=== PATIENT | female | born 1955 | race Caucasian/White ===

== ENCOUNTER → 2016-06-04 | Outpatient (CLI) | payer OTHER ==
[~2016-06-04] VITALS: Ht 170.2 cm; Wt 68.0 kg
[~2016-06-04] MED LIST: DENOSUMAB 60 MG/1 ML (PROLIA) SQ ONE
--- OUTSIDE RECORDS SUMMARY | 2016-06-04 13:17 | XMS REPORT | Continuity of Care Document ---
Author Author [facility] Organization [facility] Address Unknown Phone Unavailable Allergies Active Description Code Type Severity Reaction Onset Reported/Identified Relationship to Patient Clinical Status Yes No Known Drug Allergies [id number] Drug Allergy Unknown N/ A 09/19/2014 Medications Problems Date Dx Coded Attending Type Code Diagnosis Diagnosed By 08/29/2014 Ot V72.84 08/29/2014 Ot 733.00 08/29/2014 ROSAMARIA COYNE Ot V76.12 08/29/2014 YOAV CHILDERS DO S Ot 733.00 09/22/2014 YOAV CHILDERS DO S Ot 733.00 12/21/2014 [place] CHILDERS DOLINE S Ot 733.00 05/22/2015 WENDY CHILDERS DOQUELINE S Ot M81.0 06/18/2015 WENDY CHILDERS DOQUELINE S Ot M81.0 10/31/2015 [place] CHILDERS DOLINE S Ot M81.0 AGE-RELATED OSTEOPOROSIS W/O CURRENT PAT 11/01/2015 WENDY CHILDERS DOQUELINE S Ot M81.0 AGE-RELATED OSTEOPOROSIS W/O CURRENT PAT 11/01/2015 [place] CHILDERS DOLINE S Ot Z79.899 OTHER AIR TRAFFIC COORDINATOR (CURRENT) DRUG THERAPY 11/04/2015 WENDY CHILDERS DOQUELINE S Ot M81.0 AGE-RELATED OSTEOPOROSIS W/O CURRENT PAT 11/04/2015 PRINCENDALCON PATIÑO, YOAV S Ot Z79.899 OTHER FDC (CURRENT) DRUG THERAPY 11/20/2015 WENDY CHILDERS DOQUELINE S Ot M81.0 AGE-RELATED OSTEOPOROSIS W/O CURRENT PAT 11/20/2015 PRINCENDWENDY RONDON DOQUELINE S Ot Z79.899 OTHER FDC (CURRENT) DRUG THERAPY 11/22/2015 [place] CHILDERS DOLINE S Ot Z12.31 ENCNTR SCREEN MAMMOGRAM FOR MALIGNANT NE 12/06/2015 [place] CHILDERS DOLINE S Ot M81.0 AGE-RELATED OSTEOPOROSIS W/O CURRENT PAT 12/11/2015 YOAV CHILDERS DO Ot Z12.31 ENCNTR SCREEN MAMMOGRAM FOR MALIGNANT NE 12/25/2015 [place] CHILDERS DOLINE S Ot M81.0 AGE-RELATED OSTEOPOROSIS W/O CURRENT PAT Procedures Results Encounters ACCT No. Visit Date/Time Discharge Status Pt. Type Provider Facility Loc./Unit Complaint [id number] 09/19/2014 13:32:00 2014 23:59:59 CLS Outpatient RYLEEER WENDY PATIÑOYOAV S [facility] [id number] 09/07/2014 13:00:00 2014 23:59:59 CLS Preadmit ALVARADO PATIÑO YOAV S [facility] [id number] 08/23/2014 08:48:00 2014 23:59:59 CLS Outpatient RYLEEER DO YOAV S [facility] RAD [id number] 10/05/2013 14:49:00 2013 23:59:59 CLS Outpatient VANYOVANNYDEVROSAMARIA BRANCH ASSISTANT [facility] RAD [id number] 12/03/2015 13:02:00 ACT Outpatient ALVARADO PATIÑO YOAV S [facility] OSTEOPOROSIS [id number] 11/21/2015 09:17:00 ACT Outpatient ALVARADO PATIÑO YOAV S [facility] RAD SCREENING [id number] 10/31/2015 08:29:00 ACT Outpatient RYLEEER DO YOAV S [facility] RAD [id number] 05/14/2015 13:14:00 ACT Outpatient RYLEEER DO YOAV S [facility] [id number] 09/19/2014 14:01:00 Document Registration [id number] 09/19/2014 14:01:00 Document Registration [id number] 09/19/2014 14:01:00 Document Registration [id number] 07/01/2012 09:24:00 Document Registration [id number] 05/19/2012 07:12:00 Document Registration
[2016-06-04 13:30] VITALS: BP 139/90
== END ==
LOC: SDC 13:14
PROVIDERS: ATTEND Family Medicine
DX: M81.0 Age-related osteoporosis without current pathological fracture (principal)
CPT/HCPCS: 96372

== ENCOUNTER → 2016-11-05 | Outpatient (CLI) | payer OTHER ==
--- NOTE | 2016-11-05 09:33 | Diagnostic Imaging Report ---
Examination: DEXA scan. Indication: osteopenia Technique: Bone mineral density estimated based on dual energy radiography over the lumbar spine and femoral necks, was performed. Findings: The lumbar spine T-score is -3.3. This is 9% increased density compared to measurement of 10/31/15. T score over the left femoral neck is -1.8 and on the right side is -1.5. This is 1.2% increased density measurement compared to 2016. Impression: Osteoporosis. Dictated by: Dictated on workstation # [id number]
== END ==
LOC: RAD 08:17
PROVIDERS: ATTEND Family Medicine
DX: M81.0 Age-related osteoporosis without current pathological fracture (principal)
CPT/HCPCS: 77080

== ENCOUNTER → 2017-01-11 | Outpatient (CLI) | payer OTHER ==
[~2017-01-11] VITALS: Ht 170.2 cm; Wt 65.8 kg
== END ==
LOC: PREOP 05:58
PROVIDERS: ATTEND Surgery
DX: Z01.818 Encounter for other preprocedural examination (principal); Z12.11 Encounter for screening for malignant neoplasm of colon

== ENCOUNTER 2017-01-15 10:31 | Day surgery (SDC) | payer OTHER ==
[~2017-01-15] VITALS: Ht 170.2 cm; Wt 65.8 kg
[2017-01-15] MEDS ORDERED: NS IV 500 ML 500 ML ONE (10:40)
[2017-01-15] MEDS ORDERED: LIDOCAINE JELLY 2% (XYLOCAINE) 5 ML TUBE MM PRN (10:45)
[2017-01-15 10:57] VITALS: BP 112/74
[2017-01-15] MEDS ORDERED: NS IV 500 ML 500 ML IV PRN (11:00)
[2017-01-15] MEDS ORDERED: LIDOCAINE JELLY 2% (XYLOCAINE) 5 ML TUBE ONE (11:38)
[2017-01-15] MEDS ORDERED: fentaNYL INJECTION 100 MCG/2 ML AMP ONE ×3 (11:38→11:39)
[2017-01-15] MEDS ORDERED: MIDAZOLAM 2 MG/2 ML (VERSED) VIAL ONE ×5 (11:39)
[2017-01-15] MEDS: fentaNYL INJECTION 100 MCG/2 ML AMP IVP PRN ×5 (11:45→12:12)
[2017-01-15] MEDS: MIDAZOLAM 2 MG/2 ML (VERSED) VIAL IVP PRN ×5 (11:50→12:10)
--- NOTE | 2017-01-15 12:31 | Conscious Sedation/ASA ---
Conscious Sedation Pre-Proced Time Reviewed: 11:30 ASA Class: 2 Airway Mallampati Classification: ([place] appropriate class) I. II. III, IV Lungs Heart ASA score ASA 1: a normal healthy patient ASA 2: a patient with a mild systemic disease (mid diabetes, controlled hypertension, obesity ASA 3: a patient with a severe systemic disease that limits activity (angina , COPD, prior Myocardial infarction) ASA 4: a patient with an incapacitating disease that is a constant threat to life (CHF, renal failure) ASA 5: a moribund patient not expected to survive 24 hrs. (ruptured aneurysm) ASA 6: a declared brain patient whose organs are being harvested. For emergent operations, add the letter E after the classification Grade 2 Sedation Plan: Analgesia, Amnesia, Plan communicated to team members, Discussed options with patient/fam, Discussed risks with patient/fam Note The patient is an appropriate candidate to undergo the planned procedure, sedation, and anesthesia. The patient immediately re-assessed prior to indication. JAMILA LUEVANO MD Jan 15, 2017 12:31 pm
--- NOTE | 2017-01-15 12:32 | Progress Note-Pre Operative ---
Pre-Operative Progress Note H&P Reviewed The H&P was reviewed, patient examined and no changes noted. Date Seen by Provider: Jan 15, 2017 Time Seen by Provider: 11:30 Date H&P Reviewed: Jan 15, 2017 Time H&P Reviewed: 11:30 Pre-Operative Diagnosis: screening colonoscopy JAMILA LUEVANO MD Jan 15, 2017 12:32 pm
--- NOTE | 2017-01-15 12:33 | Progress Note-Post Operative ---
Post-Operative Progess Note Surgeon (s)/Pie Cutter (s) Surgeon JAMILA LUEVANO MD Pie Cutter: none Pre-Operative Diagnosis screening colonoscopy Post-Operative Diagnosis normal colon and rectum Procedure & Operative Findings Date of Procedure 01/15/17 Procedure Performed/Findings Colonoscopy Anesthesia Type CS Estimated Blood Loss Estimated blood loss (mL): minimal Specimens/Packing Specimens Removed none JAMILA LUEVANO MD Jan 15, 2017 12:33 pm
--- NOTE | 2017-01-15 12:34 | Discharge Inst-Surgical ---
D/C Lap Instructions-BASSEM Follow Up 10 years Activity as tolerated High Fiber Diet 25g or more per day Avoid Alcohol, Caffeine, Spicy [place] and Acid foods. Drink 64 fluid oz or more of fluids per day. Symptoms to Report: Fever over 101 degree F, Nausea/Vomiting If any problems/questions: Contact your physician or go to Emergency Room JAMILA LUEVANO MD Jan 15, 2017 12:34 pm
[2017-01-15] MEDS ORDERED: ACETAMINOPHEN 325 MG TABLET/CAPLET (TYLENOL) PO PRN (12:45)
[2017-01-15] MEDS ORDERED: HYDROcodone/APAP 5 MG/325 MG (LORTAB) TAB PO PRN (12:45)
[2017-01-15] MEDS ORDERED: morphine INJ 10 MG/ML 1ML (SYR OR VIAL) IV PRN (12:45)
[2017-01-15] MEDS ORDERED: ONDANSETRON 4 MG/2 ML (SDV) Z0FRAN IV PRN (12:45)
[2017-01-15 13:00] VITALS: BP 112/74
[2017-01-15 13:03] VITALS: BP 120/81
[2017-01-15 13:28] VITALS: BP 121/79
--- NOTE | 2017-01-15 22:06 | OPERATIVE REPORT ---
DATE OF SERVICE: 01/15/2017 ATTENDING PRIMARY CARE PHYSICIAN: Dr. Licha Schmidt DO PREOPERATIVE DIAGNOSIS: Screening colonoscopy. POSTOPERATIVE DIAGNOSIS: Normal colon and rectum. PROCEDURE: Colonoscopy. SURGEON: Dr. Luevano. ANESTHESIA: Conscious sedation. ESTIMATED BLOOD LOSS: Minimal. FINDINGS: No significant hemorrhoids identified. The remainder of the rectum and colon were normal. There were no polyps or neoplasm identified. DISPOSITION: The patient tolerated the procedure well. The patient is a 61-year-old female who needs a screening colonoscopy. She has not had a colonoscopy up to this point. She reports that she is doing well and for the most part does not have any major issues with diarrhea or constipation, as well as no bright red blood per rectum or any dark, tarry stools. She also does not report any family history of colon cancer. The patient was brought to the endoscopy suite in left lateral decubitus position. After adequate IV pain and sedative medications and conscious sedation anesthesia, a digital rectal examination was performed. No significant hemorrhoids were identified. Normal sphincter tone was felt and there were no palpable masses. The endoscope was then intubated to the anus, rectum gently insufflated. The endoscope was then advanced through the valves of [place] in the rectum where no polyps or any neoplasm was identified. We then proceeded to the sigmoid colon where no diverticulosis was identified. The endoscope was then advanced through the remainder of the descending transverse and ascending colon to the cecum. These segments were normal. There were no polyps or any neoplasms identified throughout the colon or rectum nor any other lesions. The endoscope was then slowly withdrawn while taking a 2nd look and suctioning of residual air with no additional findings. The patient tolerated the procedure well. We will have her continue with medical management with a high fiber diet with at least 25-30 minutes of fiber per day as well as at least 64 fluid ounces of water daily to promote soft stools on a daily basis. She also does not need another colonoscopy for another 10 years, however, sooner if any problems arise. Job ID: [id number] DocumentID: [id number] Dictated Date: 01/15/2017 12:31:57 Corner Trimmer Operator Date: 01/15/2017 17:30:22 Dictated By: JAMILA LUEVANO MD [facility]
== END 2017-01-15 13:30 | disposition home or self-care (01) ==
LOC: ENDO 10:31
PROVIDERS: ATTEND Surgery
DX: Z12.11 Encounter for screening for malignant neoplasm of colon (principal); M81.0 Age-related osteoporosis without current pathological fracture; Z79.899 Other long term (current) drug therapy

== ENCOUNTER → 2017-07-19 | Outpatient (CLI) | payer BC, OTHER ==
[~2017-07-19] MED LIST changes: -DENOSUMAB 60 MG/1 ML (PROLIA) SQ ONE; +PROLIA IM ONE
[2017-07-19 14:01] VITALS: BP 115/77
== END ==
LOC: SDC 13:23
PROVIDERS: ATTEND Family Medicine
DX: M81.0 Age-related osteoporosis without current pathological fracture (principal)
CPT/HCPCS: 96365

== ENCOUNTER → 2017-09-02 | Outpatient (CLI) | payer BC ==
--- NOTE | 2017-09-02 13:13 | Diagnostic Imaging Report ---
EXAMINATION: Pelvic ultrasound. INDICATION: Pelvic pain. FINDINGS: There are no prior studies available for comparison. The uterus is not enlarged measuring 4.8 x 3.9 x 2.1 cm. The endometrial lining is not thickened measuring 2 mm. There do appear to be a few calcifications in the myometrium adjacent to the endometrium in the lower uterine segment. The largest of these measures roughly 1 cm. These may represent small calcified fibroids. Neither ovary is identified. There is no pelvic mass or free fluid collection noted. IMPRESSION: 1. The uterus is not enlarged. The calcifications in the lower uterine segment may be related to small calcified uterine fibroids. 2. There is no acute pelvic abnormality noted. 3. The ovaries were not visualized. Dictated by: Dictated on workstation # [id number]
== END ==
LOC: RAD 10:43
PROVIDERS: ATTEND Family Medicine
DX: N85.8 Other specified noninflammatory disorders of uterus (principal)
CPT/HCPCS: 76830; 76856

== ENCOUNTER → 2017-11-21 | Outpatient (CLI) | payer BC ==
--- NOTE | 2017-11-21 11:33 | Diagnostic Imaging Report ---
EXAM: FACIAL BONES, 3 VIEWS OR MORE INDICATION: PRESSURE AND PAIN ON RIGHT SIDE OF FACE COMPARISON: None. FINDINGS: No fracture or malalignment is identified. The visualized paranasal sinuses are clear. No suspicious osteoblastic or lytic lesions. IMPRESSION: No acute radiographic findings. Report was called to Dalton/ALISHA C/O Bernadine GARCIA by [email or web address] at 11:32 AM. Dictated by: Dictated on workstation # [id number]
== END ==
LOC: RAD 10:56
PROVIDERS: ATTEND Nurse Practitioner Family
DX: R51 Headache (principal)
CPT/HCPCS: 70150

== ENCOUNTER → 2018-01-21 | Outpatient (CLI) | payer BC ==
[2018-01-21 13:35] VITALS: BP 124/76
== END ==
LOC: SDC 13:24
PROVIDERS: ATTEND Family Medicine
DX: M81.0 Age-related osteoporosis without current pathological fracture (principal)
CPT/HCPCS: 96372

== ENCOUNTER 2018-08-03 13:08 | Outpatient (CLI) | payer BC ==
[~2018-08-03] VITALS: Ht 170.2 cm; Wt 66.7 kg
[2018-08-03] MEDS ORDERED: DENOSUMAB 60 MG/1 ML (PROLIA) SQ ONE ×2 (13:30→13:45)
[2018-08-03 13:39] VITALS: BP 137/87
== END 2018-08-03 13:40 | disposition home or self-care (01) ==
LOC: SDC 13:08
PROVIDERS: ATTEND Family Medicine
DX: M81.0 Age-related osteoporosis without current pathological fracture (principal)
CPT/HCPCS: 96372

== ENCOUNTER 2019-02-01 12:59 | Outpatient (CLI) | payer BC ==
[~2019-02-01] VITALS: Ht 170.2 cm; Wt 66.0 kg
[2019-02-01 13:05] VITALS: BP 145/84
[2019-02-01] MEDS ORDERED: DENOSUMAB 60 MG/1 ML (PROLIA) SQ ONE (13:15)
== END 2019-02-01 13:18 | disposition home or self-care (01) ==
LOC: SDC 12:59
PROVIDERS: ATTEND Family Medicine
DX: M81.0 Age-related osteoporosis without current pathological fracture (principal)
CPT/HCPCS: 96372

== ENCOUNTER → 2019-03-14 | Outpatient (CLI) | payer BC ==
--- NOTE | 2019-03-14 14:24 | Diagnostic Imaging Report ---
INDICATION: Routine screening. Comparison is made with prior mammogram from 11/21/2015 and 10/05/2013. 2-D and 3-D bilateral screening mammography was performed with CAD. Bilateral breast implants are again noted. Implant contours appear to be stable. Breast parenchyma is heterogeneously dense, limiting the sensitivity of mammography. No mass or malignant appearing microcalcifications are seen. Axillae are unremarkable. IMPRESSION: BI-RADS Category 2 No mammographic features suspicious for malignancy are identified. ACR BI-RADS Category 2: Benign findings. Result letter will be mailed to the patient. Note: At least 10% of breast cancer is not imaged by mammography. Dictated by: Dictated on workstation # [id number]
--- NOTE | 2019-03-14 16:26 | Diagnostic Imaging Report ---
INDICATION: 63-year-old female, postmenopausal. Screening for osteoporosis. COMPARISON: November 05, 2016. FINDINGS: AP Spine L1-L4: [BMD (g/cm2): 0.726] [T-Score: -4.0] [Z-Score: -2.6] [BMD Previous: 0.804] [BMD % Change: -9.7] LT Hip Neck: [BMD (g/cm2): 0.713] [T-Score: -2.3] [Z-Score: -1.0] LT Hip Total: [BMD (g/cm2):0699] [T-Score:-2.5] [Z-Score: -1.5] [BMD Previous: 0.675] [BMD % Change: 3.6] RT Hip Neck: [BMD (g/cm2):0.705] [T-Score:-2.4] [Z-Score:-1.1] RT Hip Total: [BMD (g/cm2):0.712] [T-score:-2.3] [Z-Score:-1.3] [BMD Previous:0.713] [BMD % Change:-.1] *Indicates significant change from prior examination based on 95% confidence level. World Health Organization criteria for BMD interpretation classify patients as Normal (T-score at or above -1.0), Osteopenic (T-score between -1.0 and -2.5) or Osteoporotic (T-score at or below -2.5). LIMITATIONS AND MODIFICATION: None. IMPRESSION: 1. Osteoporosis. 2. See below National Osteoporosis Foundation guidelines on when to potentially initiate pharmacologic therapy. Based on the National Osteoporosis Foundation Guidelines, pharmacologic treatment should be initiated in any of the following, unless clinical conditions suggest otherwise: * Any patient with prior fragility fracture of the hip or vertebrae. A spine fracture indicates 5X risk for subsequent spine fracture and 2X risk for subsequent hip fracture. * Osteoporosis (T-score <-2.5). * Postmenopausal women and men age 50 and older with low bone mass/osteopenia (T-score between -1.0 and -2.5) by DXA and 10-year major osteoporotic fracture greater than 20% or a 10-year probability of hip fracture greater than 3%. These fracture risks are supplied above in the FRAX score, if applicable. * Clinician judgement and/or patient preferences may indicate treatment for people with 10-year fracture probabilities above or below these levels. Dictated by: Dictated on workstation # [id number]
== END ==
LOC: RAD 12:39
PROVIDERS: ATTEND Family Medicine
DX: Z12.31 Encounter for screening mammogram for malignant neoplasm of breast (principal); Z13.820 Encounter for screening for osteoporosis; M81.0 Age-related osteoporosis without current pathological fracture; Z78.0 Asymptomatic menopausal state
CPT/HCPCS: 77067; 77080

== ENCOUNTER → 2019-10-19 | Outpatient (CLI) | payer BC ==
[~2019-10-19] MED LIST changes: +DENOSUMAB 60 MG/1 ML (PROLIA) SQ ONE; -PROLIA IM ONE
[2019-10-19 08:26] VITALS: BP 121/74
== END ==
LOC: SDC 08:20
PROVIDERS: ATTEND Family Medicine
DX: M81.0 Age-related osteoporosis without current pathological fracture (principal)
CPT/HCPCS: 96372

== ENCOUNTER → 2020-10-15 | Outpatient (CLI) | payer BC ==
[2020-10-15 13:30] VITALS: BP 132/80
== END ==
LOC: SDC 12:50
PROVIDERS: ATTEND Family Medicine
DX: M81.0 Age-related osteoporosis without current pathological fracture (principal)
CPT/HCPCS: 96372

== ENCOUNTER → 2021-03-18 | Outpatient (CLI) | payer BC ==
--- NOTE | 2021-03-18 12:21 | Diagnostic Imaging Report ---
INDICATION: 65-year-old asymmetric postmenopausal female COMPARISON: 03/14/2019 FINDINGS: AP Spine L1-L4: [BMD (g/cm2): 0.744] [T-Score: -3.8] [Z-Score: -2.4] [BMD Previous: 0.726] [BMD % Change: 2.5] LT Hip Neck: [BMD (g/cm2): 0.692] [T-Score: -2.5] [Z-Score: -1.2] LT Hip Total: [BMD (g/cm2):0.678] [T-Score:-2.6] [Z-Score: -1.6] [BMD Previous: 0.699] [BMD % Change: -3.0] RT Hip Neck: [BMD (g/cm2):0.712] [T-Score:-2.3] [Z-Score:-1.0] RT Hip Total: [BMD (g/cm2):0.709] [T-score:-2.4] [Z-Score:-1.4] [BMD Previous:0.712] [BMD % Change:-1.1] *Indicates significant change from prior examination based on 95% confidence level. World Health Organization criteria for BMD interpretation classify patients as Normal (T-score at or above -1.0), Osteopenic (T-score between -1.0 and -2.5) or Osteoporotic (T-score at or below -2.5). LIMITATIONS AND MODIFICATION: None. FRACTURE RISK (FRAX SCORE): Not applicable as patient meets criteria for osteoporosis. IMPRESSION: 1. Osteoporosis. 2. No significant change in bone mineral density since prior examination. 3. See below National Osteoporosis Foundation guidelines on when to potentially initiate pharmacologic therapy. Based on the National Osteoporosis Foundation Guidelines, pharmacologic treatment should be initiated in any of the following, unless clinical conditions suggest otherwise: * Any patient with prior fragility fracture of the hip or vertebrae. A spine fracture indicates 5X risk for subsequent spine fracture and 2X risk for subsequent hip fracture. * Osteoporosis (T-score <-2.5). * Postmenopausal women and men age 50 and older with low bone mass/osteopenia (T-score between -1.0 and -2.5) by DXA and 10-year major osteoporotic fracture greater than 20% or a 10-year probability of hip fracture greater than 3%. These fracture risks are supplied above in the FRAX score, if applicable. * Clinician judgement and/or patient preferences may indicate treatment for people with 10-year fracture probabilities above or below these levels. Dictated by: Dictated on workstation # [id number]
--- NOTE | 2021-03-18 12:32 | Diagnostic Imaging Report ---
INDICATION: Routine screening. COMPARISON: 03/14/2019 and 11/21/2015. TECHNIQUE: 2D and 3D bilateral screening mammography was performed with CAD. FINDINGS: Bilateral breast implants are again noted. The implant contours are smooth. The breast parenchyma remains heterogeneously dense, limiting the sensitivity of mammography. The parenchymal pattern is stable. No mass or malignant-appearing microcalcifications are seen. The axillae are unremarkable. IMPRESSION: No mammographic features suspicious for malignancy are identified. ACR BI-RADS Category 2: Benign findings. Result letter will be mailed to the patient. Note: At least 10% of breast cancer is not imaged by mammography. Dictated by: Dictated on workstation # [id number]
== END ==
LOC: RAD 08:30
PROVIDERS: ATTEND Family Medicine
DX: Z12.31 Encounter for screening mammogram for malignant neoplasm of breast (principal); M81.0 Age-related osteoporosis without current pathological fracture; Z78.0 Asymptomatic menopausal state
CPT/HCPCS: 77063; 77067; 77080

== ENCOUNTER 2021-04-07 12:15 | Outpatient (CLI) | payer BC ==
[2021-04-07 12:15] VITALS: BP 131/79
[2021-04-07] MEDS ORDERED: DENOSUMAB 60 MG/1 ML (PROLIA) SQ SCH ×2 (12:30→12:45)
== END 2021-04-07 12:48 ==
LOC: SDC 12:15
PROVIDERS: ATTEND Family Medicine
DX: M81.0 Age-related osteoporosis without current pathological fracture (principal)
CPT/HCPCS: 96372

== ENCOUNTER → 2021-11-19 | Outpatient (CLI) | payer BC ==
[2021-11-18 15:00] VITALS: BP 144/85
[~2021-11-19] VITALS: Wt 66.0 kg
[~2021-11-19] MED LIST changes: -DENOSUMAB 60 MG/1 ML (PROLIA) SQ ONE; +DENOSUMAB 60 MG/1 ML (PROLIA) SQ SCH
== END ==
LOC: SDC 14:32
PROVIDERS: ATTEND Family Medicine
DX: M81.0 Age-related osteoporosis without current pathological fracture (principal)
CPT/HCPCS: 96372

== ENCOUNTER → 2022-03-23 | Outpatient (CLI) | payer BC ==
--- NOTE | 2022-03-23 13:10 | Diagnostic Imaging Report ---
INDICATION: Routine screening. COMPARISON: 03/18/2021 and 03/14/2019. TECHNIQUE: 2D and 3D bilateral screening mammography was performed with CAD. FINDINGS: Bilateral breast implants are again noted. The implant contours remain smooth. No definite evidence of extracapsular rupture is seen. Breast parenchyma remains heterogeneously dense, limiting the sensitivity of mammography. No mass or malignant-appearing microcalcifications are seen. The axillae are unremarkable. IMPRESSION: No mammographic features suspicious for malignancy are identified. ACR BI-RADS Category 2: Benign findings. Result letter will be mailed to the patient. Note: At least 10% of breast cancer is not imaged by mammography. Dictated on workstation # [id number]
== END ==
LOC: RAD 07:24
PROVIDERS: ATTEND Family Medicine
DX: Z12.31 Encounter for screening mammogram for malignant neoplasm of breast (principal)
CPT/HCPCS: 77063; 77067

== ENCOUNTER → 2022-05-22 | Outpatient (CLI) | payer BC ==
[~2022-05-22] MED LIST changes: +DENOSUMAB 60 MG/1 ML (PROLIA) SQ ONE; -DENOSUMAB 60 MG/1 ML (PROLIA) SQ SCH
[2022-05-22 11:30] VITALS: BP 123/76
== END ==
LOC: SDC 11:05
PROVIDERS: ATTEND Family Medicine
DX: M81.0 Age-related osteoporosis without current pathological fracture (principal)
CPT/HCPCS: 96372

== ENCOUNTER → 2022-11-23 | Outpatient (CLI) | payer BC ==
[~2022-11-23] VITALS: Wt 66.0 kg
[~2022-11-23] MED LIST changes: -DENOSUMAB 60 MG/1 ML (PROLIA) SQ ONE; +DENOSUMAB 60 MG/1 ML (PROLIA) SQ SCH
[2022-11-23 11:52] VITALS: BP 121/77
== END ==
LOC: SDC 11:39
PROVIDERS: ATTEND Family Medicine
DX: M81.0 Age-related osteoporosis without current pathological fracture (principal)
CPT/HCPCS: 96372

== ENCOUNTER → 2023-03-30 | Outpatient (CLI) | payer BC ==
--- NOTE | 2023-03-30 12:30 | Diagnostic Imaging Report ---
INDICATION: Postmenopausal state. COMPARISON: 03/18/2021. FINDINGS: AP Spine L1-L4: [BMD (g/cm2): 0.759] [T-Score: -3.7] [Z-Score: -2.2] [BMD Previous: 0.744] [BMD % Change: 2.0] LT Hip Neck: [BMD (g/cm2): 0.649] [T-Score: -2.8] [Z-Score: -1.4] LT Hip Total: [BMD (g/cm2):0.682] [T-Score:-2.6] [Z-Score: -1.4] [BMD Previous: 0.678] [BMD % Change: 0.6] RT Hip Neck: [BMD (g/cm2):0.690] [T-Score:-2.5] [Z-Score:-1.1] RT Hip Total: [BMD (g/cm2):0.727] [T-score:-2.2] [Z-Score:-1.1] [BMD Previous:0.704] [BMD % Change:3.3] *Indicates significant change from prior examination based on 95% confidence level. World Health Organization criteria for BMD interpretation classify patients as Normal (T-score at or above -1.0), Osteopenic (T-score between -1.0 and -2.5) or Osteoporotic (T-score at or below -2.5). LIMITATIONS AND MODIFICATION: None. FRACTURE RISK (FRAX SCORE): The ten year probability of (%): Major Osteoporotic Fracture: [15.7] Hip Fracture: [4.1] IMPRESSION: 1. Osteoporosis. 2. No significant change in bone mineral density since prior examination. 3. See below National Osteoporosis Foundation guidelines on when to potentially initiate pharmacologic therapy. Based on the National Osteoporosis Foundation Guidelines, pharmacologic treatment should be initiated in any of the following, unless clinical conditions suggest otherwise: * Any patient with prior fragility fracture of the hip or vertebrae. A spine fracture indicates 5X risk for subsequent spine fracture and 2X risk for subsequent hip fracture. * Osteoporosis (T-score <-2.5). * Postmenopausal women and men age 50 and older with low bone mass/osteopenia (T-score between -1.0 and -2.5) by DXA and 10-year major osteoporotic fracture greater than 20% or a 10-year probability of hip fracture greater than 3%. These fracture risks are supplied above in the FRAX score, if applicable. * Clinician judgement and/or patient preferences may indicate treatment for people with 10-year fracture probabilities above or below these levels. Dictated by: Dictated on workstation # [id number]
--- NOTE | 2023-03-30 16:09 | Diagnostic Imaging Report ---
3-D bilateral screening mammogram with CAD. The study was compared to the prior exams of 03/23/2022, 03/18/2021, 03/14/2019. At this time there are no current complaints. There are bilateral breast implants in place. The implants appear similar to the prior study. There is no evidence for an extracapsular rupture of either implant. The fibroglandular tissue overlying the implants is heterogeneously dense. This does limit the sensitivity of this exam. Overall, there does not appear to have been any significant change. There is no primary or secondary sign of malignancy noted. Impression: 1. There is no evidence for malignancy. 2. The implants appear stable. ACR BI-RADS Category 1: Negative. Result letter will be mailed to the patient. Note: At least 10% of breast cancer is not imaged by mammography. Dictated by: Dictated on workstation # [id number]
== END ==
LOC: RAD 08:25
PROVIDERS: ATTEND Family Medicine
DX: Z12.31 Encounter for screening mammogram for malignant neoplasm of breast (principal); M81.0 Age-related osteoporosis without current pathological fracture; Z98.82 Breast implant status
CPT/HCPCS: 77063; 77067; 77080